=== PATIENT | female | born 1985 | race Caucasian/White ===

== ENCOUNTER → 2023-09-30 14:49 | Outpatient (REF) | payer BC, SELFPAY | LOC: HWRAD 14:49 | PROVIDERS: ATTENDING PHYSICIAN Nurse Practitioner Obstetrics & Gynecology; FAMILY PHYSICIAN Nurse Practitioner Adult Health | DX: N93.0 Postcoital and contact bleeding (principal) | CPT/HCPCS: 76830; 76856 ==

== ENCOUNTER 2024-07-31 16:09 | Emergency (ER) | payer BC, SELFPAY ==
[2024-07-31 16:17] VITALS: BP 174/126
[2024-07-31 16:47] LABS: % Basophils 0.4 % (0-2); % Eosinophils 0.3 % (0-6); % Immature Granulocytes 0.4 % (0-0.5); % Lymphocytes 14.3 % (20.5-51.1); % Neutrophils 79.6 % (42.2-75.2); Absolute Basophils 0.1 10^3/uL (0-0.2); Absolute Eosinophils 0.1 10^3/uL (0-0.7); Absolute Immature Granulocytes 0.1 10^3/uL (0-0.05); Absolute Lymphocytes 2.3 10^3/uL (1.2-3.4); Absolute Monocytes 0.8 10^3/uL (0.1-0.6); Absolute Neutrophils 12.9 10^3/uL (1.4-6.5); Hematocrit 44.6 % (37.0-47.0); Hemoglobin 15.8 g/dL (12.0-16.0); Mean Corp Hgb Conc. 35.4 g/dL (33.0-37.0); Mean Corpuscular Hgb 30.3 pg (27.0-31.0); Mean Corpuscular Volume 85.4 fL (81.0-99.0); Mean Platelet Volume 11.1 fL (7.4-10.4); Nucleated Red Blood Cells % 0 %; Platelet Count 354 10^3/uL (130-400); Red Blood Cell Count 5.22 10^6/uL (4.20-5.40); Red Cell Dist. Width 12.8 % (11.5-14.5); White Blood Cell Count 16.2 10^3/uL (4.8-10.8)
[2024-07-31 16:49] LABS: ALT (SGPT) 24 U/L (0-35); AST (SGOT) 23 U/L (14-36); Albumin 4.8 g/dl (3.5-5.0); Alkaline Phosphatase 93 U/L (38-126); Blood Urea Nitrogen 16 mg/dl (7-17); Calcium 9.7 mg/dl (8.4-10.2); Carbon Dioxide 22 mmol/L (22-30); Chloride 104 mmol/L (98-107); Glucose 116 mg/dl (70-99); Potassium 4.5 mmol/L (3.5-5.1); Sodium 139 mmol/L (135-145); Total Bilirubin 1.6 mg/dl (0.2-1.3); Total Protein 7.8 g/dl (6.3-8.2); eGFR > 60.00
--- NOTE | 2024-07-31 19:15 | ED.GENMED ---
History of Present Illness
General
Chief Complaint: Rectal Bleeding
Source: patient
Exam Limitations: none
Time Seen by Provider: 07/31/24 18:42
Nursing documentation reviewed up to this point in time: agreed with
History of Present Illness
History of Present Illness:
Patient presents to ED secondary to 24-hour history of persistent abdominal pain, associated with intermittent episodes of vomiting as well as diarrhea, which today has become bloody in nature. Denies fever or chills. Denies trauma. Denies recent
travel. Denies recent change in diet. Patient works at daycare. Denies previous history of similar symptoms. Denies dizziness or weakness.
Past History
Past History
ED Past Medical History: None
ED Past Surgical History: None
Social History
Personal: Single
Living: with family
Review of Systems
Review of Systems
Allergies reviewed?: Yes
All Other Systems: ROS reviewed and negative except as documented in HPI and ROS
Constitutional: Denies fever or chills
Respiratory: Reports no symptoms
Cardiac: Reports no symptoms
ABD/GI: Reports abdominal pain, vomiting, diarrhea and bloody stools
Musculoskeletal: Reports no symptoms
Skin: Reports no symptoms
Neurological: Reports no symptoms; Denies dizzy or weakness
Phy Exam
Physical Exam
Physical Exam:
Physical Exam
General: mild distress, not acutely ill. afebrile.
Head: nc/at. eomi
Neck: supple. no meningeal signs.
Heart: s1/s2 regular rate and rhythm.
Lungs: no acute respiratory distress. clear bilaterally
Abdomen: normal bowel sounds. mild suprapubic/LLQ tenderness to palpation.
Neuro: alert and oriented x 3. no focal neurological deficits
Skin: no rash
Psychiatric: well kept. interactive and cooperative
Extremities: no edema. no calf tenderness.
Course
Orders/Labs/Results
Orders:
Orders
07/31/24 16:24
Complete Blood Count/With Diff Urgent
Comprehensive Metabolic Panel Urgent
HCG, Serum Qualitative Screen Urgent
Comment: ADDON
07/31/24 19:01
0.9% Sodium Chloride 1000 ml [Nss] 1,000 ml IV BOLUS
Ketorolac [Toradol] 15 mg IV NOW STA
Pantoprazole [Protonix IV] 40 mg IV NOW STA
07/31/24 19:02
CT Abd/pelvis W Iv Cont Urgent
Comment:
Reason For Exam: lower abdominal pain w bloody diarrhea
07/31/24 19:05
Add On- LAB Urgent
Tests Added?: serum B-HCG, qualitative
Abnormal Lab Results
07/31/24
16:24
WBC 16.2 H 10^3/uL
(4.8-10.8)
MPV 11.1 H fL
(7.4-10.4)
Abs Immat Gran (auto) 0.1 H 10^3/uL
(0-0.05)
Absolute Neuts (auto) 12.9 H 10^3/uL
(1.4-6.5)
Absolute Monos (auto) 0.8 H 10^3/uL
(0.1-0.6)
Neutrophils % 79.6 H %
(42.2-75.2)
Lymphocytes % 14.3 L %
(20.5-51.1)
Glucose 116 H mg/dl
(70-99)
Total Bilirubin 1.6 H mg/dl
(0.2-1.3)
07/31/24 16:24
07/31/24 16:24
Vital Signs
Initial and Last Documented VS:
Initial Vital Signs
Temp Pulse Resp Pulse Ox
98.2 F 134 18 97
07/31/24 16:15 07/31/24 16:15 07/31/24 16:15 07/31/24 16:15
Last Documented Vital Signs
Temp Pulse Resp BP Pulse Ox
98.2 F 95 18 159/115 97
07/31/24 16:15 07/31/24 19:45 07/31/24 16:15 07/31/24 20:00 07/31/24 20:00
MDM/Problems Addressed
MDM/Problems Addressed:
CT abd/pel report reviewed and discussed with the patient.
Pt otherwise reports improvement after treatment and remains hemodynamically stable. Repeat abd exam: soft and nontender. Will advise continual hydration at home. Will prescribe abx, to be not taken unless symptoms do not improve after 48hrs, as her
symptoms may be transient due to viral illness vs food exposure, etc. Advised return to ED with sig. worsening symptoms, ie. fever/worsening pain/vomiting. Pt expresses understanding at time of discharge.
*Critical Care Note
Total Time (30-74mins, 75-104mins- exclusive of procedures): Not Applicable
ED Attending Note
-
Portions of this chart may have been created with voice recognition software.� Occasional wrong word or��sound alike� substitutions may have occurred due to the inherent limitations of voice recognition software.
Discharge Plan
Departure
Patient Disposition: Home (Routine Discharge)
Date of Disposition: 07/31/24
Time of Disposition: 21:48
Patient with high blood pressure during this ER visit?: Yes
Condition: Fair
Discharge Problem:
Colitis
Instructions: Colitis - Discharge instructions
Prescriptions:
New
amoxicillin-pot clavulanate 875-125 mg tablet
1 tab PO BID Qty: 14 0RF
No Action
ibuprofen [Advil] 200 MG tablet
200 mg PO Q6HPRN PRN (Reason: wound pain) Qty: 0 0RF
amoxicillin-pot clavulanate 1 TABLET tablet
1 tab PO Q12 Qty: 6 0RF
Referrals:
NONE,* [Family Provider] -
Stand Alone Forms: Return to Work
Activity Restrictions/Additional Instructions:
As discussed, please follow up with your primary care physician for re-evaluation or consider returning to ED with worsening symptoms, ie. fever/worsening pain/vomiting/dizziness
Interventions
Interventions:
*Risk Screen - Suicide Last Done: 07/31/24 16:18
*General Assessment Last Done: 07/31/24 16:18
*Neglect/Abuse Screening Last Done: 07/31/24 16:18
*ED- Fall Risk Assessment Last Done: 07/31/24 20:53
*ED COVID-19 Vaccine History Last Done: 07/31/24 16:18
*Nursing Disposition Last Done: 07/31/24 21:58
PG-Kiqbbc-Euoykfnvbl Assessment Last Done: 07/31/24 20:00
ED- Pulmonary Assessment Last Done: 07/31/24 19:46
Discharge Date and Time
Discharge Date/Time: 07/31/24 21:58
Print Language: ITALIAN
[2024-07-31] MEDS: NSS 1000 IV (19:19)
[2024-07-31] MEDS: TORADOL 15 MG IV (19:20)
[2024-07-31] MEDS: PROTONIX IV 40 MG IV (19:20)
[2024-07-31 19:38] VITALS: BP 162/131
[2024-07-31 19:44] LABS: HCG, Serum Qualitative Screen Negative
[2024-07-31 20:00] VITALS: BP 159/115
== END 2024-07-31 21:58 | disposition home or self-care (01) ==
LOC: EMR 16:09
PROVIDERS: Emergency Medicine; EMERGENCY PHYSICIAN Emergency Medicine
DX: K52.9 Noninfective gastroenteritis and colitis, unspecified (principal)
CPT/HCPCS: 99284; 96374; 96375; 96361; 74177; 80053; 84703; 85025; Q9967